=== PATIENT | female | born 1995 | race Caucasian/White ===

== ENCOUNTER 2019-04-15 11:49 | Emergency (ER) | payer OTHER ==
[2019-04-15 12:08] VITALS: BP 132/87
[2019-04-15] MEDS ORDERED: DIPH/PERTUSS(ACELL)/TETANUS VAC/PF 0.5 ML SYR (>=10YO) IM ONE (12:17)
--- NOTE | 2019-04-15 12:17 | ER Document Report ---
ED Medical Screen (RME) - General Chief Complaint: Foot Injury Stated Complaint: FOOT LACERATION Time Seen by Provider: 04/15/19 12:14 Mode of Arrival: Wheelchair Information source: Patient Notes: 23-year-old female presents to ED for lacerations to the top of the left foot. Patient is alert oriented respirations regular and unlabored speaking in full sentences. She states that 1030 last night she slipped [place] boat ramp cutting her foot. She states the [employer] put the dressing on and she did not come to the emergency room because she was scared of stitches. There are 2 lacerations to the top of the foot. She states that the [employer] cleaned it out put bacitracin and an dressing to the wound. Her last tetanus immunization was somewhere around between 2009 2011. She will get one today. I have greeted and performed a rapid initial assessment of this patient. A comprehensive ED assessment and evaluation of the patient, analysis of test results and completion of medical decision making process will be conducted by an additional ED providers. Dictation of this chart was performed using voice recognition software; therefore, there may be some unintended grammatical errors. TRAVEL OUTSIDE OF THE [place] IN LAST 30 DAYS: No - Related Data Allergies/Adverse Reactions: No Known Allergies Allergy (Unverified 04/15/19 11:53) Physical Exam - Vital signs Vitals: Temp Pulse Resp BP Pulse Ox 98.6 F 99 14 132/87 H 99 04/15/19 12:07 04/15/19 12:07 04/15/19 12:07 04/15/19 12:07 04/15/19 12:07 Course - Vital Signs Vital signs: Temp Pulse Resp BP Pulse Ox 98.6 F 99 14 132/87 H 99 04/15/19 12:07 04/15/19 12:07 04/15/19 12:07 04/15/19 12:07 04/15/19 12:07
--- NOTE | 2019-04-15 12:57 | RADIOLOGY REPORT (SQ) ---
EXAM DESCRIPTION: FOOT LEFT COMPLETE COMPLETED DATE/TIME: 04/15/2019 12:42 pm REASON FOR STUDY: laceration on boat ramp COMPARISON: None. NUMBER OF VIEWS: Three views. TECHNIQUE: AP, lateral and oblique radiographic images acquired of the left foot. LIMITATIONS: None. FINDINGS: MINERALIZATION: Normal. BONES: No acute fracture or dislocation. No worrisome bone lesions. JOINTS: No effusions. SOFT TISSUES: The laceration on the medial aspect of the foot. There are some small radiopaque forei gn bodies within the soft tissues. These do not appear to represent bone fragments. OTHER: No other significant finding. IMPRESSION: Laceration with radiopaque foreign bodies. No osseous abnormality. TECHNICAL DOCUMENTATION: JOB ID: [id number] [employer]- All Rights Reserved Reading location - IP/workstation name: [email or web address]
[2019-04-15] MEDS ORDERED: BUPIVACAINE HCL 0.5%-EPI 1:200000 INJ/PF 30 ML VIAL INJ ONE (14:09)
[2019-04-15] MEDS ORDERED: DOXYCYCLINE HYCLATE 100 MG TABLET PO ONE (14:15)
[2019-04-15] MEDS ORDERED: OXYCODONE-ACETAMINOPHEN 5-325 MG TABLET PO ONE (14:15)
[2019-04-15] MEDS ORDERED: CEPHALEXIN 500 MG CAPSULE PO ONE (14:15)
--- NOTE | 2019-04-15 14:18 | ER Document Report ---
Addendum entered and electronically signed by BETH BAUMANN NP 05/04/19 09:24: Discharge - Discharge Clinical Impression: Foot laceration Qualifiers: Encounter type: initial encounter Laterality: left Qualified Code(s): S91.312A - Laceration without foreign body, left foot, initial encounter Condition: Stable Disposition: HOME, SELF-CARE Instructions: Laceration Care ([facility]), Oral Narcotic Medication ([facility]), Prophylactic Antibiotic ([facility]), Soap Cleansing ([facility]), Tetanus Immunization Given ([facility]) Additional Instructions: Return immediately for any new or worsening symptoms Followup with your primary care provider, call tomorrow to make a followup appointment Keep wound covered as it continues to heal. Monitor for any signs of infection including increased pain, redness, swelling, purulent drainage or fever. Return medially for any signs of infection. Prescriptions: Cephalexin Monohydrate [Keflex 500 mg Capsule] 500 mg PO Q6H 5 Days capsule Doxycycline Hyclate 100 mg PO BID #20 capsule Oxycodone HCl/Acetaminophen [Percocet 5-325 mg Tablet] 1 tab PO ASDIR PRN #8 tablet PRN Reason: Forms: Return to Work Referrals: [facility] ([facility] [Provider Group] - Follow up as needed LUIS MORA MD [Primary Care Provider] - Follow up as needed Original Note: HPI - HPI Patient complains to provider of: Foot laceration Time Seen by Provider: 04/15/19 12:14 Onset: Yesterday Onset/Duration: Sudden Quality of pain: Achy Pain Level: 3 Context: Patient states that she slipped on a boat ramp late at night and cut her foot on an unknown object. Patient states she may have cut her foot on shelves. Patient with 2 lacerations to the dorsal aspect of her left foot. Patient had x-rays performed in triage which demonstrates radiopaque retained foreign bodies within the wound. Associated Symptoms: Other - Foot laceration Exacerbated by: Movement Relieved by: Denies Similar symptoms previously: No Recently seen / treated by doctor: No - ROS ROS below otherwise negative: Yes Systems Reviewed and Negative: Yes All other systems reviewed and negative - CONSTITUTIONAL Constitutional: DENIES: Fever - NEURO Neurology: DENIES: Weakness - REPRODUCTIVE Reproductive: DENIES: : - MUSCULOSKELETAL Musculoskeletal: REPORTS: Extremity pain - DERM Skin Color: Normal Skin Problems: Laceration Past Medical History - General Information source: Patient - Social History Smoking Status: Never Smoker Frequency of alcohol use: Occasional Drug Abuse: None 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 IN LAST 30 DAYS: No - HEENT HEENT: Atraumatic, Normocephalic - NECK Neck: Normal Inspection - RESPIRATORY Respiratory: No Respiratory Distress - CARDIOVASCULAR Pulses: Normal: Dorsalis pedis - MUSCULOSKELETAL/EXTREMETIES Musculoskeletal/Extremeties: MAEW, Tender - L foot tenderness - NEURO Level of Consciousness: Awake, Alert, Appropriate Motor/Sensory: No Motor Deficit - DERM Integumentary: Warm, Dry, Laceration - Patient with 2 lacerations to the dorsum of left foot with minimal surrounding erythema. More proximal wound is irregular and appears to be visibly contaminated. Course - Re-evaluation Re-evalutation: 04/15/19 14:17 Review of x-ray demonstrates multiple retained radiopaque foreign bodies to the lacerations of foot. Patient states that [place] and may have gotten caught by shells. Will cover with antibiotics and plan to anesthetize area and cleaned thoroughly. Good return precautions discussed with patient as well as wound management. 04/15/19 After wound was anesthetized, wound was soaked in surgical scrub and tap water. Wound was then cleansed with an ultra-Dex sponge per PCT and irrigated and visible debris was removed from wound. - Vital Signs Vital signs: Temp Pulse Resp BP Pulse Ox 98.6 F 99 14 132/87 H 99 04/15/19 12:07 04/15/19 12:07 04/15/19 12:07 04/15/19 12:07 04/15/19 12:07 - Diagnostic Test Radiology reviewed: Image reviewed, Reports reviewed Discharge - Discharge Clinical Impression: Foot laceration Qualifiers: Encounter type: initial encounter Laterality: left Qualified Code(s): S91.312A - Laceration without foreign body, left foot, initial encounter Condition: Stable Disposition: HOME, SELF-CARE Instructions: Laceration Care ([facility]), Oral Narcotic Medication ([facility]), Prophylactic Antibiotic ([facility]), Soap Cleansing ([facility]), Tetanus Immunization Given ([facility]) Additional Instructions: Return immediately for any new or worsening symptoms Followup with your primary care provider, call tomorrow to make a followup appointment Keep wound covered as it continues to heal. Monitor for any signs of infection including increased pain, redness, swelling, purulent drainage or fever. Return medially for any signs of infection. Prescriptions: Cephalexin Monohydrate [Keflex 500 mg Capsule] 500 mg PO Q6H 5 Days capsule Doxycycline Hyclate 100 mg PO BID #20 capsule Oxycodone HCl/Acetaminophen [Percocet 5-325 mg Tablet] 1 tab PO ASDIR PRN #8 tablet PRN Reason: Forms: Return to Work Referrals: LUIS MORA MD [Primary Care Provider] - Follow up as needed [facility] ([facility] [Provider Group] - Follow up as needed
== END 2019-04-15 15:35 | disposition home or self-care (01) ==
LOC: ER 11:49
DX: S91.312A Laceration without foreign body, left foot, initial encounter (principal); W01.0XXA Fall on same level from slipping, tripping and stumbling without subsequent striking against object, initial encounter; Y92.89 Other specified places as the place of occurrence of the external cause
CPT/HCPCS: 99283; 90471; 73630; 90715; J3490